=== PATIENT | male | born 2000 | race Caucasian/White ===

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

== ENCOUNTER 2022-02-11 18:13 | Emergency (ER) | payer MEDICAID ==
[2022-02-11] MEDS ORDERED: Doxycycline 100 MG Cap PO STA (18:26)
[2022-02-11 18:53] VITALS: BP 107/58; PULSE 73
== END 2022-02-11 18:51 | disposition home or self-care (01) ==
LOC: MW.ED 18:13
DX: L03.113 Cellulitis of right upper limb (principal)
CPT/HCPCS: 99283; A9270; 99282

== ENCOUNTER 2022-02-16 01:55 | Emergency (ER) | payer MEDICAID ==
[2022-02-16 02:11] VITALS: BP 105/65; PULSE 63
== END 2022-02-16 02:30 | disposition home or self-care (01) ==
LOC: MW.ED 01:55
DX: L03.90 Cellulitis, unspecified (principal)
CPT/HCPCS: 99283

== ENCOUNTER 2023-06-22 00:37 | Emergency (ER) | payer MEDICAID ==
[2023-06-22 00:57] LABS: BASOPHILS ABSOLUTE AUTO 0.03 K/uL (0.00-0.20); BASOPHILS PERCENT AUTO 0.3 % (0.0-1.0); EOSINOPHILS ABSOLUTE AUTO 0.17 K/uL (0.00-0.45); EOSINOPHILS PERCENT AUTO 1.8 % (0.0-6.0); HEMATOCRIT 45.3 % (42.0-52.0); HEMOGLOBIN 16.4 g/dL (14.0-18.0); IMMATURE GRAN ABSOLUTE AUTO 0.03 K/uL (0.00-0.05); IMMATURE GRAN PERCENT AUTO 0.3 % (0.0-0.4); LYMPHOCYTES ABSOLUTE AUTO 2.17 K/uL (1.00-4.80); LYMPHOCYTES PERCENT AUTO 23.5 % (24.0-44.0); MEAN CORPUSCULAR HEMOGLOBIN 31.1 pg (28.0-32.0); MEAN CORPUSCULAR HGB CONC 36.2 g/dL (32.0-36.0); MEAN CORPUSCULAR VOLUME 85.8 fL (83.0-99.0); MEAN PLATELET VOLUME 9.1 fL (9.4-12.4); MONOCYTES ABSOLUTE AUTO 0.77 K/uL (0.00-0.80); MONOCYTES PERCENT AUTO 8.3 % (0.0-8.0); NEUTROPHILS ABSOLUTE AUTO 6.07 K/uL (1.80-7.70); NEUTROPHILS PERCENT AUTO 65.8 % (41.0-71.0); PLATELET COUNT,PLT 224 K/uL (150-400); RED BLOOD CELL COUNT 5.28 M/uL (4.52-5.90); WHITE BLOOD CELL COUNT,WBC 9.24 K/uL (3.9-11.3)
[2023-06-22] MEDS ORDERED: Piperacillin/Tazobactam 4.5 GM in Sodium Chloride 0.9% 100 ML IV ONE (01:02)
[2023-06-22 01:20] LABS: ALANINE AMINOTRANSFERASE,ALT 18 IU/L (14-63); ALBUMIN 4.1 g/dL (3.4-5.0); ALKALINE PHOSPHATASE 81 U/L (46-116); ASPARTATE AMNIOTRANSFERASE,AST 12 IU/L (15-37); BILIRUBIN TOTAL 0.3 mg/dL (0.2-1.0); BLOOD UREA NITROGEN,BUN 19 mg/dL (7.0-18.0); CALCIUM 9.5 mg/dL (8.5-10.1); CARBON DIOXIDE,CO2 27.1 mmol/L (21.0-32.0); CHLORIDE,CL 101 mmol/L (98-107); GLUCOSE RANDOM 100 mg/dL (74-106); POTASSIUM,K 3.7 mmol/L (3.5-5.1); PROTEIN TOTAL,TP 8.3 g/dL (6.4-8.2); SODIUM,NA 139 mmol/L (136-148)
[2023-06-22 01:21] LABS: ESTIMATED GFR 111 mL/min (>60)
[2023-06-22] MEDS ORDERED: Iopamidol 755 Mg/ML 100 ML Bottle IVPUSH ONE (01:45)
[2023-06-22 03:18] VITALS: BP 131/96; PULSE 79
== END 2023-06-22 03:26 | disposition home or self-care (01) ==
LOC: MW.ED 00:37
DX: H61.001 Unspecified perichondritis of right external ear (principal)
CPT/HCPCS: 36415; 70481; 80053; 85025; 96365; 99283; J2543; J3490; Q9967; 99284

== ENCOUNTER 2024-07-21 16:58 | Emergency (ER) | payer SELFPAY ==
[2024-07-21] MEDS: Sodium Chloride 0.9% 1,000 ML IV ONE (18:44)
[2024-07-21] MEDS: Ondansetron 4 MG/2 ML SDV IVPUSH ONE (18:45)
[2024-07-21] MEDS: Ketorolac 30 MG/ML SDV IVPUSH ONE (18:45)
[2024-07-21 18:58] LABS: BASOPHILS ABSOLUTE AUTO 0.02 K/uL (0.00-0.20); BASOPHILS PERCENT AUTO 0.2 % (0.0-1.0); EOSINOPHILS ABSOLUTE AUTO 0.07 K/uL (0.00-0.45); EOSINOPHILS PERCENT AUTO 0.7 % (0.0-6.0); HEMATOCRIT 48.4 % (42.0-52.0); HEMOGLOBIN 17.3 g/dL (14.0-18.0); IMMATURE GRAN ABSOLUTE AUTO 0.02 K/uL (0.00-0.05); IMMATURE GRAN PERCENT AUTO 0.2 % (0.0-0.4); LYMPHOCYTES ABSOLUTE AUTO 0.41 K/uL (1.00-4.80); LYMPHOCYTES PERCENT AUTO 4.1 % (24.0-44.0); MEAN CORPUSCULAR HEMOGLOBIN 30.9 pg (28.0-32.0); MEAN CORPUSCULAR HGB CONC 35.7 g/dL (32.0-36.0); MEAN CORPUSCULAR VOLUME 86.4 fL (83.0-99.0); MEAN PLATELET VOLUME 9.7 fL (9.4-12.4); MONOCYTES ABSOLUTE AUTO 0.64 K/uL (0.00-0.80); MONOCYTES PERCENT AUTO 6.4 % (0.0-8.0); NEUTROPHILS PERCENT AUTO 88.4 % (41.0-71.0); PLATELET COUNT,PLT 170 K/uL (150-400); WHITE BLOOD CELL COUNT,WBC 9.96 K/uL (3.9-11.3)
[2024-07-21 19:32] LABS: A/G RATIO 1.5 (0.9-1.6); ALBUMIN 4.6 g/dL (3.4-5.0); BILIRUBIN TOTAL 0.9 mg/dL (0.2-1.0); CALCIUM 9.3 mg/dL (8.5-10.1); CARBON DIOXIDE,CO2 25.3 mmol/L (21.0-32.0); CREATININE 1.1 mg/dL (0.8-1.3); EST CRCL DRUG DOSING (CG) 104.75 mL/min; MAGNESIUM 1.7 mg/dL (1.8-2.4); POTASSIUM,K 4.1 mmol/L (3.5-5.1); PROTEIN TOTAL,TP 7.6 g/dL (6.4-8.2)
[2024-07-21] MEDS: Iopamidol 755 MG/ML 500 ML Multipack Bottle IVPUSH STA (20:02)
[2024-07-21 22:08] VITALS: BP 91/58; PULSE 103
== END 2024-07-21 22:11 | disposition home or self-care (01) ==
LOC: MW.ED 16:58
DX: A08.4 Viral intestinal infection, unspecified (principal); Z75.8 Other problems related to medical facilities and other health care
CPT/HCPCS: 36415; 74177; 80053; 83690; 83735; 85025; 96361; 96374; 96375; 99284; J1885; J2405; J7030; Q9967

== ENCOUNTER 2025-03-14 11:44 | Emergency (ER) | payer SELFPAY ==
[2025-03-14 12:51] VITALS: BP 113/61; PULSE 72
[2025-03-14] MEDS: Diphtheria,Pertussis(Acell),Tetanus Vaccine 0.5 ML Syringe IM ONE (12:52)
== END 2025-03-14 12:57 | disposition home or self-care (01) ==
LOC: MW.ED 11:44
DX: S61.451A Open bite of right hand, initial encounter (principal); S60.311A Abrasion of right thumb, initial encounter; Z79.899 Other long term (current) drug therapy; W50.3XXA Accidental bite by another person, initial encounter; Z75.3 Unavailability and inaccessibility of health-care facilities; Z23 Encounter for immunization
CPT/HCPCS: 90471; 90715; 99283; 99283-25